=== PATIENT | female | born 1980 | race Caucasian/White ===

== ENCOUNTER 2020-11-17 23:56 | Inpatient (IN) | payer MEDICAID ==
[~2020-11-17] VITALS: Ht 160 cm; Wt 99.8 kg
[2020-11-18] MEDS ORDERED: PREN-55 PO (00:59)
[2020-11-18 02:26] LABS: BASOPHILS % 0.5 % (0.0-2.0); EOSINOPHILS % 0.8 % (0.0-5.0); HEMATOCRIT. 32.9 % (36.0-48.0); HEMOGLOBIN. 10.9 g/dL (12.0-16.0); LYMPHOCYTES % 26.3 % (20.0-50.0); MEAN CORPUSCULAR HEMOGLOBIN 27.5 pg (28.0-32.0); MEAN PLATELET VOLUME 11.7 fl (7.4-10.4); NEUTROPHILS % 64.4 % (40.0-76.0); PLATELET 117 x1000/uL (130-400); RED BLOOD CELL COUNT 3.97 mill/uL (4.2-5.4); RED CELL DISTRIBUTION WIDTH 15.8 % (11.6-14.6)
[2020-11-18 02:27] LABS: CLARITY URINE CLEAR (CLEAR); COLOR URINE YELLOW (YELLOW); KETONES URINE NEGATIVE (NEGATIVE); LEUKOCYTE ESTERASE URINE TRACE (NEGATIVE); NITRITE URINE NEGATIVE (NEGATIVE); OCCULT BLOOD URINE NEGATIVE (NEGATIVE); PROTEIN URINE NEGATIVE (NEGATIVE); SPECIFIC GRAVITY URINE 1.011 (1.005-1.030); UROBILINOGEN URINE 0.2 E.U./dL (0.2-1.0)
[2020-11-18 02:33] LABS: CHLORIDE 110 mEq/L (98-107)
[2020-11-18 02:37] LABS: D-DIMER 2.36 mg/L FEU (<0.50); INR 0.9; PARTIAL THROMBOPLASTIN TIME 23.6 sec (23.4-31.0); PROTHROMBIN TIME 9.7 sec (9.6-11.0)
[2020-11-18] MEDS ORDERED: BUTORPHANOL TARTRATE 2 MG/ML VIAL IV PRN (03:45)
[2020-11-18] MEDS ORDERED: NALOXONE HCL 0.4 MG/ML 1ML VIAL IM PRN (03:45)
[2020-11-18] MEDS ORDERED: LIDOCAINE HCL 1% 20ML VIAL (Pyxis) INJ INFIL SCH (03:45)
[2020-11-18] MEDS: LACTATED RINGERS 1,000 ML IV SCH ×3 (04:06→19:35)
[2020-11-18 04:12] LABS: *AMPHETAMINES SCREEN URINE NEGATIVE (NEGATIVE); *BARBITURATES SCREEN URINE NEGATIVE (NEGATIVE)
[2020-11-18 04:13] LABS: *BENZODIAZEPINES SCREEN URINE NEGATIVE (NEGATIVE); *COCAINE SCREEN URINE NEGATIVE (NEGATIVE); CANNABINOID URINE SCREEN NEGATIVE (NEGATIVE); METHADONE URINE SCREEN NEGATIVE (NEGATIVE); OPIATES URINE SCREEN NEGATIVE (NEGATIVE); PHENCYCLIDINE URINE SCREEN NEGATIVE (NEGATIVE)
[2020-11-18 04:47] LABS: HEPATITIS B SURFACE ANTIGEN NEGATIVE
[2020-11-18] MEDS: DEXT 5%/LR + PITOCIN 20UNITS/L 1,000 ML IV SCH (07:14)
[2020-11-18] MEDS ORDERED: ROPIVACAINE HCL/PF EPIDURAL 200 ML EP SCH (18:15)
[2020-11-18] MEDS ORDERED: BUPIVACAINE HCL/PF 0.25% (2.5MG/ML) 10ML ONE (18:29)
[2020-11-19] MEDS ORDERED: BUPIVACAINE HCL/PF 0.25% (2.5MG/ML) 10ML ONE ×2 (01:01→12:12)
[2020-11-19] MEDS: LACTATED RINGERS 1,000 ML IV SCH ×2 (01:13→09:40)
[2020-11-19] MEDS ORDERED: METHYLERGONOVINE MALEATE 0.2 MG/ML ONE (08:00)
[2020-11-19 11:54] LABS: BASOPHILS % 0.4 % (0.0-2.0); EOSINOPHILS % 0.1 % (0.0-5.0); HEMATOCRIT. 30.4 % (36.0-48.0); HEMOGLOBIN. 10.3 g/dL (12.0-16.0); MEAN CORPUSCULAR HEMOGLOBIN 27.8 pg (28.0-32.0); MEAN CORPUSCULAR VOLUME 81.7 fL (81.0-99.0); MEAN PLATELET VOLUME 11.1 fl (7.4-10.4); MONOCYTES % 7.1 % (2.0-8.0); NEUTROPHILS % 81.4 % (40.0-76.0); PLATELET 94 x1000/uL (130-400); RED BLOOD CELL COUNT 3.72 mill/uL (4.2-5.4); RED CELL DISTRIBUTION WIDTH 16.2 % (11.6-14.6)
[2020-11-19] MEDS ORDERED: ROPIVACAINE HCL/PF EPIDURAL 200 ML EPI SCH (12:00)
[2020-11-19] MEDS ORDERED: FENTANYL CITRATE/PF 50MCG/ML 2ML VIAL ONE (12:12)
[2020-11-19] MEDS ORDERED: MORPHINE SULFATE/PF 1MG/ML 10ML AMP ONE (14:10)
[2020-11-19] MEDS ORDERED: CEFAZOLIN SODIUM 1000MG/VIAL ONE (14:34)
[2020-11-19] MEDS ORDERED: OXYTOCIN 10 UNITS/ML 1ML ONE (14:34)
[2020-11-19] MEDS ORDERED: EPHEDRINE SULFATE 50MG/ML VIAL ONE (14:34)
[2020-11-19] MEDS ORDERED: ONDANSETRON HCL 4MG/2ML INJ ONE (14:34)
[2020-11-19] MEDS ORDERED: SODIUM CHLORIDE 0.9% 10ML VIAL ONE (14:35)
[2020-11-19] MEDS: DEXT 5%/LR + PITOCIN 20UNITS/L 1,000 ML IV SCH ×2 (14:47→23:07)
[2020-11-19] MEDS ORDERED: IBUPROFEN 400MG TABLET PO PRN (16:00)
[2020-11-19] MEDS ORDERED: DIPHENHYDRAMINE 50MG/ML VIAL IV PRN ×2 (16:00→16:15)
[2020-11-19] MEDS ORDERED: HEMORRHOIDAL SUPP PR PRN (16:00)
[2020-11-19] MEDS ORDERED: HYDROMORPHONE HCL/PF 2MG/ML CPJ IV PRN ×3 (16:00→16:15)
[2020-11-19] MEDS ORDERED: LABETALOL 5MG/ML SYR 20 MG/4 ML SYRINGE IV PRN ×3 (16:00→16:15)
[2020-11-19] MEDS ORDERED: HYDROCODONE/ACETAMINOPHEN 5/325MG TABLET PO PRN (16:00)
[2020-11-19] MEDS ORDERED: KETOROLAC 30MG/ML VIAL IV PRN ×2 (16:00→16:15)
[2020-11-19] MEDS ORDERED: DEXT 5%/LR + PITOCIN 20UNITS/L 1,000 ML IV SCH (16:00)
[2020-11-19] MEDS ORDERED: BUTORPHANOL TARTRATE 2 MG/ML VIAL IM PRN ×2 (16:00→16:15)
[2020-11-19] MEDS ORDERED: BISACODYL 10MG SUPP PR PRN (16:00)
[2020-11-19] MEDS ORDERED: ONDANSETRON HCL 4MG/2ML INJ IV PRN ×4 (16:00→16:15)
[2020-11-19] MEDS ORDERED: MEPERIDINE HCL/PF 25MG/ML CPJ IV PRN ×3 (16:00→16:15)
[2020-11-19] MEDS ORDERED: RHO(D) IMMUNE GLOBULIN 300 MCG/SYR IM PRN (16:00)
[2020-11-19] MEDS: KETOROLAC 30MG/ML VIAL IV PRN (16:26)
[2020-11-19 17:10] VITALS: BP 139/76
[2020-11-19 19:30] VITALS: BP 133/72
[2020-11-19 20:30] VITALS: BP 138/80
[2020-11-19 23:30] VITALS: BP 137/77
[2020-11-20] MEDS: KETOROLAC 30MG/ML VIAL IV PRN (01:33)
[2020-11-20 03:00] VITALS: BP 130/76
[2020-11-20 06:40] LABS: BASOPHILS % 0.2 % (0.0-2.0); EOSINOPHILS % 0.1 % (0.0-5.0); HEMATOCRIT. 29.4 % (36.0-48.0); HEMOGLOBIN. 9.6 g/dL (12.0-16.0); LYMPHOCYTES % 8.4 % (20.0-50.0); MEAN CORPUSCULAR HEMOGLOBIN 27.3 pg (28.0-32.0); MEAN CORPUSCULAR VOLUME 83.4 fL (81.0-99.0); MEAN PLATELET VOLUME 11.6 fl (7.4-10.4); MONOCYTES % 5.7 % (2.0-8.0); NEUTROPHILS % 85.6 % (40.0-76.0); PLATELET 91 x1000/uL (130-400); RED BLOOD CELL COUNT 3.53 mill/uL (4.2-5.4); RED CELL DISTRIBUTION WIDTH 15.7 % (11.6-14.6)
[2020-11-20 07:30] VITALS: BP 127/63
[2020-11-20] MEDS: IBUPROFEN 800MG TABLET PO PRN ×3 (08:34→21:53)
[2020-11-20] MEDS: PRENATAL VIT/FE FUMARATE/FA TABLET PO SCH (08:35)
[2020-11-20] MEDS: SIMETHICONE 80MG TABLET CHEW PO SCH ×2 (08:35→21:54)
[2020-11-20] MEDS: DOCUSATE SODIUM 100MG CAPSULE PO SCH ×2 (08:35→21:53)
[2020-11-20 17:10] VITALS: BP 109/60
[2020-11-20 19:20] VITALS: BP 111/79
[2020-11-20] MEDS: MAGNESIUM/ALUMINUM HYDROXIDE/SIMETHICONE 30ML UDC PO SCH (21:54)
[2020-11-21 04:45] VITALS: BP 115/80
[2020-11-21] MEDS: IBUPROFEN 800MG TABLET PO PRN (04:46)
[2020-11-21] MEDS ORDERED: FERR325T6 MT (07:38)
[2020-11-21] MEDS ORDERED: IBUP-2030 PO (07:38)
[2020-11-21 08:09] VITALS: BP 130/82
[2020-11-21] MEDS: PRENATAL VIT/FE FUMARATE/FA TABLET PO SCH (09:05)
[2020-11-21] MEDS: MAGNESIUM/ALUMINUM HYDROXIDE/SIMETHICONE 30ML UDC PO SCH (09:05)
[2020-11-21] MEDS: SIMETHICONE 80MG TABLET CHEW PO SCH (09:05)
== END 2020-11-21 12:05 | disposition home or self-care (01) | DRG 540 ==
LOC: OBSVTOIN 23:56 → 8 EST LDRP 23:56 → INTOOBSV 23:56 → 8EST 11-19 17:18
PROVIDERS: ADMIT Obstetrics & Gynecology; ATTEND Obstetrics & Gynecology
PROC: 10D00Z1 Extraction of Products of Conception, Low, Open Approach (ICD-10-PCS; principal; 2020-11-19)
PROC: 0U7C7ZZ Dilation of Cervix, Via Natural or Artificial Opening (ICD-10-PCS; 2020-11-19)
PROC: 3E033VJ Introduction of Other Hormone into Peripheral Vein, Percutaneous Approach (ICD-10-PCS; 2020-11-19)
DX: O76 Abnormality in fetal heart rate and rhythm complicating labor and delivery (principal); E66.9 Obesity, unspecified; O62.1 Secondary uterine inertia; O62.0 Primary inadequate contractions; O36.63X0 Maternal care for excessive fetal growth, third trimester, not applicable or unspecified; O77.0 Labor and delivery complicated by meconium in amniotic fluid; O13.4 Gestational [pregnancy-induced] hypertension without significant proteinuria, complicating childbirth; O99.214 Obesity complicating childbirth; O90.81 Anemia of the puerperium; O66.40 Failed trial of labor, unspecified; Z20.822 Contact with and (suspected) exposure to COVID-19; Z3A.39 39 weeks gestation of pregnancy; Z37.0 Single live birth; O61.1 Failed instrumental induction of labor; O61.0 Failed medical induction of labor
CPT/HCPCS: 36415; 76805; 76818; 80053; 80305; 81003; 84550; 85025; 85379; 85384; 86592; 86703; 86762; 86850; 86900; 87340; 87426; 88307; G0378; J0690; J1885; J2210; J2274; J2405; J2590; J2795; J3010; J3490; J7120